=== PATIENT | male | born 1980 | race Two or more races ===

== ENCOUNTER 2016-11-01 11:09 | Emergency (ER) | payer SELFPAY ==
[~2016-11-01] VITALS: Ht 188 cm; Wt 97.5 kg
[2016-11-01 11:12] VITALS: BP 119/64
[2016-11-01] MEDS ORDERED: FLUORESCEIN SODIUM OPHTH 1 EA STRIP ONE (11:15)
[2016-11-01] MEDS ORDERED: TETRACAINE HCL/PF 0.5% UD 2 ML BOTTLE ONE (11:15)
== END 2016-11-01 12:09 | disposition home or self-care (01) ==
LOC: ER 11:12
DX: S05.01XA Injury of conjunctiva and corneal abrasion without foreign body, right eye, initial encounter (principal); X58.XXXA Exposure to other specified factors, initial encounter; Y93.9 Activity, unspecified; Y92.89 Other specified places as the place of occurrence of the external cause; Y99.8 Other external cause status
CPT/HCPCS: 99283; A4606; Z7610